=== PATIENT | male | born 1995 | race Caucasian/White ===

== ENCOUNTER 2025-02-25 07:24 | Emergency (ER) | payer BC ==
[~2025-02-25] VITALS: Ht 193 cm; Wt 127.0 kg
[2025-02-25] MEDS ORDERED: NALO4SPR BNOSTRILS (08:58)
[2025-02-25 09:39] VITALS: BP 121/80; TEMP 98.3; O2SAT 99
== END 2025-02-25 09:39 | disposition home or self-care (01) ==
LOC: ER 07:30
DX: T40.411A Poisoning by fentanyl or fentanyl analogs, accidental (unintentional), initial encounter (principal); F17.200 Nicotine dependence, unspecified, uncomplicated; F32.A Depression, unspecified; Z60.2 Problems related to living alone; Y92.9 Unspecified place or not applicable
CPT/HCPCS: 98960